=== PATIENT | male | born 1985 | race Caucasian/White ===

== ENCOUNTER 2016-11-07 15:13 | Emergency (ER) | payer OTHER ==
[2016-11-07] MEDS ORDERED: ASPIRIN 81 MG CHEW PO STA (15:18)
[2016-11-07] MEDS ORDERED: SODIUM CHLORIDE 0.9% 1,000 ML IV STA (15:18)
[2016-11-07 15:20] VITALS: RESP 18; TEMP 99
[2016-11-07] MEDS ORDERED: KETOROLAC 30 MG/ML 1 ML VIAL IVP STA (15:21)
--- NOTE | 2016-11-07 15:23 | ED ---
Chest Pain HPI - General Chief Complaint: Chest Pain Stated Complaint: chest pain Time Seen by Provider: 11/07/16 15:13 Source: patient, EMS, RN notes reviewed Mode of arrival: EMS Limitations: no limitations - History of Present Illness Initial Comments: This is a 31-year-old male who apparently had an argument with his father just prior to admission he started developing midsternal sharp chest pain he rated 10 /10 severity EMS was called he has had a blood pressure 160/100 repeat after he was settled on EMS 116/70. He does have a history of hypertension. No history of heart or lung disease. He does not smoke and does not drink. MD Complaint: chest pain - Related Data Home Medications Medication Instructions Recorded Confirmed Acetaminophen Tab [Tylenol Tab] 1,000 mg PO Q6HR PRN 11/21/15 11/21/15 EPINEPHrine (Auto Inject) [Epipen] 0.3 mg IM ONCE PRN 11/21/15 11/21/15 Losartan/Hydrochlorothiazide 1 tab PO DAILY 11/21/15 11/21/15 [Losartan-Hctz 100-25 mg Tab] Previous Rx's Medication Instructions Recorded Famotidine [Pepcid] 20 mg PO DAILY PRN #5 tablet 11/21/15 predniSONE 50 mg PO DAILY #5 tab 11/21/15 Ibuprofen 800 mg PO Q6HR PRN #20 tablet 11/07/16 Allergies Allergy/AdvReac Type Severity Reaction Status Date / Time venom-honey bee Allergy Dyspnea Verified 11/07/16 16:21 [bee venom (honey bee)] Review of Systems ROS Statement: Those systems with pertinent positive or pertinent negative responses have been documented in the HPI. ROS Other: All systems not noted in ROS Statement are negative. EKG Findings - EKG Results: EKG: interpreted by ERMKristel, sinus rhythm (Sinus rhythm with a rate of 88. Interval 176 QRS duration 104 QT since QTC of 360/[address]-T wave changes) Past Medical History Past Medical History: Hypertension History of Any Multi-Drug Resistant Organisms: None Reported Past Surgical History: Orthopedic Surgery Additional Past Surgical History / Comment(s): hand surgery Past Psychological History: Anxiety, Depression, PTSD Smoking Status: Never smoker Past Alcohol Use History: None Reported Past Drug Use History: None Reported General Exam - General Exam Comments Initial Comments: This is a well-developed well-nourished awake alert oriented 3 male Limitations: no limitations General appearance: alert, anxious Head exam: Present: atraumatic, normocephalic, normal inspection Eye exam: Present: normal appearance, PERRL, EOMI. Absent: scleral icterus, conjunctival injection, periorbital swelling ENT exam: Present: normal exam, mucous membranes moist Neck exam: Present: normal inspection. Absent: tenderness, meningismus, lymphadenopathy Respiratory exam: Present: normal lung sounds bilaterally, chest wall tenderness (Reproducible tenderness palpation of the left costal sternal margin. No step-off or crepitation.). Absent: respiratory distress, wheezes, rales, rhonchi, stridor Cardiovascular Exam: Present: regular rate, normal rhythm, normal heart sounds. Absent: systolic murmur, diastolic murmur, rubs, gallop, clicks GI/Abdominal exam: Present: soft, normal bowel sounds. Absent: distended, tenderness, guarding, rebound, rigid Extremities exam: Present: normal inspection, full ROM, normal capillary refill. Absent: tenderness, pedal edema, joint swelling, calf tenderness Back exam: Present: normal inspection Neurological exam: Present: alert, oriented X3, CN II-XII intact Psychiatric exam: Present: normal affect, normal mood Skin exam: Present: warm, dry, intact, normal color. Absent: rash Course Vital Signs 11/07/16 15:15 Temperature 99 F Pulse Rate 77 Respiratory 18 Rate Blood Pressure 159/84 O2 Sat by Pulse 94 L Oximetry Chest Pain MDM - MDM I did review the imaging and reports no acute findings. I did discuss the findings with patient family patient will be discharged presentation is consistent with costochondritis. Patient is mother does relate that the patient did lift up some heavy materials recently and likely did pull the chest wall that way. Disposition Clinical Impression: Costalchondritis, Chest wall syndrome Disposition: HOME SELF-CARE Condition: Good Instructions: Costochondritis (ED) Prescriptions: Ibuprofen 800 mg PO Q6HR PRN #20 tablet PRN Reason: Pain Referrals: Trevon Jones MD [Primary Care Provider] - 1-2 days
[2016-11-07 15:44] LABS: Basophils # (A) 0.1 k/uL (0-0.2); Basophils % (A) 1 %; CH 30.3; Eosinophils # (A) 0.3 k/uL (0-0.7); Eosinophils % (A) 4 %; HCT 39.4 % (39.0-53.0); HDW 2.89; HGB 14.2 gm/dL (13.0-17.5); Luc # (Auto) 0.09; Luc % (Auto) 1; Lymphocytes # (A) 1.8 k/uL (1.0-4.8); Lymphocytes % (A) 25 %; MCH 30.6 pg (25.0-35.0); MCV 84.8 fL (80.0-100.0); Mean Platelet Volume 7.1; Monocytes # (A) 0.4 k/uL (0-1.0); Monocytes % (A) 5 %; Neutrophils # (A) 4.6 k/uL (1.3-7.7); Neutrophils % (A) 64 %; RBC 4.65 m/uL (4.30-5.90); RDW 13.3 % (11.5-15.5); WBC 7.2 k/uL (3.8-10.6); WBC (Perox) 7.06
[2016-11-07 15:55] LABS: ALT 46 U/L (21-72); AST 24 U/L (17-59); Alkaline Phosphatase 58 U/L (38-126); Anion Gap 10 mmol/L; Blood Urea Nitrogen 11 mg/dL (9-20); Calcium 9.7 mg/dL (8.4-10.2); Carbon Dioxide 27 mmol/L (22-30); Chloride 107 mmol/L (98-107); Glucose 83 mg/dL (74-99); Magnesium 1.9 mg/dL (1.6-2.3); Non-African American GFR(MDRD) >60 (>60 ml/min/1.73 sqM); Potassium 3.5 mmol/L (3.5-5.1); Sodium 144 mmol/L (137-145); Total Bilirubin 0.3 mg/dL (0.2-1.3); Total Protein 7.1 g/dL (6.3-8.2)
[2016-11-07 15:57] LABS: Creatine Kinase 176 U/L (55-170); INR 1.1 (<1.2); Partial Thromboplastin Time 23.8 sec (22.0-30.0); Prothrombin Time 10.9 sec (9.0-12.0)
[2016-11-07 16:10] LABS: Troponin I <0.012 ng/mL (0.000-0.034)
[2016-11-07 16:13] LABS: Creatine Kinase MB 2.8 ng/mL (0.0-2.4)
--- NOTE | 2016-11-07 16:25 | XR ---
EXAMINATION TYPE: XR chest 2V DATE OF EXAM: 11/07/2016 COMPARISON: January 25, 2014. HISTORY: Chest pain TECHNIQUE: Frontal and lateral views of the chest are obtained. FINDINGS: There is no focal air space opacity, pleural effusion, or pneumothorax seen. The cardiac silhouette size is within normal limits. The osseous structures are intact. IMPRESSION: No acute cardiopulmonary process.
[2016-11-07 16:33] VITALS: BP 138/83; PULSE 74
== END 2016-11-07 16:49 | disposition home or self-care (01) ==
LOC: EEVIPCON 15:13 → EC 15:13
DX: M94.0 Chondrocostal junction syndrome [Tietze] (principal); I10 Essential (primary) hypertension; Z79.899 Other long term (current) drug therapy; Z91.030 Bee allergy status
CPT/HCPCS: 36415; 93005; 85379; 80053; 82550; 82553; 83735; 84484; 85025; 85610; 85730; 71020; 99285; 96374; J1885

== ENCOUNTER 2017-12-03 15:05 | Emergency (ER) | payer OTHER ==
[2017-12-03 15:20] VITALS: BP 164/85; PULSE 78; RESP 20; TEMP 98.3
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
== END 2017-12-03 16:39 | disposition home or self-care (01) ==
LOC: EC 15:05
DX: S13.4XXA Sprain of ligaments of cervical spine, initial encounter (principal); I10 Essential (primary) hypertension; Z91.030 Bee allergy status; Z79.899 Other long term (current) drug therapy; V49.59XA Passenger injured in collision with other motor vehicles in traffic accident, initial encounter; Y93.89 Activity, other specified; Y92.410 Unspecified street and highway as the place of occurrence of the external cause
CPT/HCPCS: 70450; 72125; 99284

== ENCOUNTER 2018-01-02 16:22 | Emergency (ER) | payer OTHER ==
[2018-01-02] MEDS ORDERED: SODIUM CHLORIDE 0.9% 1,000 ML IV STA (16:45)
[2018-01-02] MEDS ORDERED: DEXAMETHASONE SOD PHOSPHATE 10 MG/ML 1 ML VIAL IV STA (16:45)
[2018-01-02 17:31] VITALS: RESP 18
--- NOTE | 2018-01-02 18:36 | ED ---
Allergic Reaction HPI - General Chief complaint: Allergic Reaction Stated complaint: bee sting Time Seen by Provider: 01/02/18 16:35 Source: patient, EMS, RN notes reviewed, old records reviewed Mode of arrival: EMS Limitations: no limitations - History of Present Illness Initial Comments: This is a 32-year-old male the ER for evaluation of ALLERGIC reaction, bee sting. Patient is known ALLERGIC history, no history of reaction to bee sting. Patient did get EpiPen was brought to emergency room, patient is complaining of itching to both areas 1 left shoulder 1 right hand. No shortness of breath currently no feelings of not closing or difficulty breathing MD Complaint: allergic reaction -: minutes(s) (30) Exposure: insect bite Symptoms: rash, facial swelling Treatment Prior to Arrival: epinephrine Previous Allergy History: anaphylaxis - Related Data Home Medications Medication Instructions Recorded Confirmed EPINEPHrine (Auto Inject) [Epipen] 0.3 mg IM ONCE PRN 11/21/15 01/02/18 Losartan/Hydrochlorothiazide 1 tab PO DAILY 11/21/15 01/02/18 [Losartan-Hctz 100-25 mg Tab] Metoprolol Tartrate [Lopressor] 25 mg PO DAILY 01/02/18 01/02/18 Previous Rx's Medication Instructions Recorded EPINEPHrine (Auto Inject) [Epipen] 0.3 mg IM ONCE PRN #1 syringe 01/02/18 Famotidine [Pepcid] 20 mg PO BID #28 tablet 01/02/18 diphenhydrAMINE [Benadryl] 50 mg PO QID PRN #20 capsule 01/02/18 Allergies Allergy/AdvReac Type Severity Reaction Status Date / Time peanut Allergy Anaphylaxis Verified 01/02/18 16:39 tree nut Allergy Anaphylaxis Verified 01/02/18 16:39 venom-honey bee Allergy Anaphylaxis Verified 01/02/18 16:39 [bee venom (honey bee)] Review of Systems ROS Statement: Those systems with pertinent positive or pertinent negative responses have been documented in the HPI. ROS Other: All systems not noted in ROS Statement are negative. Past Medical History Past Medical History: Hypertension History of Any Multi-Drug Resistant Organisms: None Reported Past Surgical History: Orthopedic Surgery Additional Past Surgical History / Comment(s): hand surgery Past Psychological History: No Psychological Hx Reported, Anxiety, Depression, PTSD Smoking Status: Never smoker Past Alcohol Use History: None Reported Past Drug Use History: None Reported General Exam - General Exam Comments Initial Comments: Patient does have bee sting to right hand, left shoulder no stinger, no local erythema Limitations: no limitations General appearance: alert, in no apparent distress Head exam: Present: atraumatic, normocephalic, normal inspection Eye exam: Present: normal appearance, PERRL, EOMI. Absent: scleral icterus, conjunctival injection, periorbital swelling ENT exam: Present: normal exam, mucous membranes moist Neck exam: Present: normal inspection. Absent: tenderness, meningismus, lymphadenopathy Respiratory exam: Present: normal lung sounds bilaterally. Absent: respiratory distress, wheezes, rales, rhonchi, stridor Cardiovascular Exam: Present: regular rate, normal rhythm, normal heart sounds. Absent: systolic murmur, diastolic murmur, rubs, gallop, clicks GI/Abdominal exam: Present: soft, normal bowel sounds. Absent: distended, tenderness, guarding, rebound, rigid Extremities exam: Present: normal inspection, full ROM, normal capillary refill. Absent: tenderness, pedal edema, joint swelling, calf tenderness Back exam: Present: normal inspection Neurological exam: Present: alert, oriented X3, CN II-XII intact Psychiatric exam: Present: normal affect, normal mood Skin exam: Present: warm, dry, intact, normal color. Absent: rash Course Vital Signs 01/02/18 01/02/18 01/02/18 16:31 16:38 17:30 Temperature 100.5 F H Pulse Rate 122 H 122 H 108 H Respiratory 22 20 18 Rate Blood Pressure 164/101 138/90 133/82 O2 Sat by Pulse 94 L 94 L 96 Oximetry 01/02/18 18:40 Temperature 99.0 F Pulse Rate 97 Respiratory 18 Rate Blood Pressure 130/73 O2 Sat by Pulse 96 Oximetry - Reevaluation(s) Reevaluation #1: Patient symptoms have significant relief resolved. Medical Decision Making - Medical Decision Making 32 male the ER with ALLERGIC reaction to bee sting. Patient can be discharged home as he is asymptomatic currently Disposition Clinical Impression: Allergic reaction, Allergic reaction to insect sting Disposition: HOME SELF-CARE Condition: Good Instructions: Insect Bite or Sting (ED) Prescriptions: diphenhydrAMINE [Benadryl] 50 mg PO QID PRN #20 capsule PRN Reason: itch EPINEPHrine (Auto Inject) [Epipen] 0.3 mg IM ONCE PRN #1 syringe PRN Reason: Anaphylaxis Famotidine [Pepcid] 20 mg PO BID #28 tablet Is patient prescribed a controlled substance at d/c from ED?: No Referrals: Trevon Jones MD [Primary Care Provider] - 1-2 days
[2018-01-02 18:47] VITALS: BP 130/73; PULSE 97; TEMP 99
== END 2018-01-02 18:45 | disposition home or self-care (01) ==
LOC: EC 16:22
DX: T63.441A Toxic effect of venom of bees, accidental (unintentional), initial encounter (principal); I10 Essential (primary) hypertension; Z79.899 Other long term (current) drug therapy; Z91.030 Bee allergy status; Z91.010 Allergy to peanuts; Z91.018 Allergy to other foods
CPT/HCPCS: 99284; 96374; 96361; J1100

== ENCOUNTER 2018-09-12 18:51 | Emergency (ER) | payer OTHER ==
[2018-09-12 19:02] VITALS: TEMP 99.1
[2018-09-12] MEDS ORDERED: SODIUM CHLORIDE 0.9% 1,000 ML IV STA (19:16)
[2018-09-12] MEDS ORDERED: KETOROLAC 30 MG/ML 1 ML VIAL IVP STA (19:16)
[2018-09-12] MEDS ORDERED: ASPIRIN 81 MG PO STA (19:16)
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
[2018-09-12 19:58] LABS: Basophils # (A) 0.1 k/uL (0-0.2); Basophils % (A) 1 %; Eosinophils # (A) 0.3 k/uL (0-0.7); Eosinophils % (A) 3 %; HCT 38.2 % (39.0-53.0); HGB 13.3 gm/dL (13.0-17.5); Lymphocytes # (A) 2.1 k/uL (1.0-4.8); Lymphocytes % (A) 21 %; MCH 29.2 pg (25.0-35.0); MCHC 34.9 g/dL (31.0-37.0); MCV 83.8 fL (80.0-100.0); Mean Platelet Volume 7.2; Monocytes # (A) 0.5 k/uL (0-1.0); Monocytes % (A) 5 %; Neutrophils % (A) 70 %; Platelet Count 252 k/uL (150-450); RBC 4.56 m/uL (4.30-5.90); RDW 14.4 % (11.5-15.5)
[2018-09-12 20:07] LABS: ALT 34 U/L (21-72); AST 29 U/L (17-59); African American GFR (CKD) >90 (>60 ml/min/1.73 sqM); Albumin 4.3 g/dL (3.5-5.0); Alkaline Phosphatase 70 U/L (38-126); Anion Gap 10 mmol/L; Blood Urea Nitrogen 16 mg/dL (9-20); Calcium 9.5 mg/dL (8.4-10.2); Carbon Dioxide 25 mmol/L (22-30); Chloride 109 mmol/L (98-107); Glucose 95 mg/dL (74-99); Magnesium 2.1 mg/dL (1.6-2.3); Potassium 3.3 mmol/L (3.5-5.1); Sodium 144 mmol/L (137-145); Total Bilirubin 0.3 mg/dL (0.2-1.3); Total Protein 6.9 g/dL (6.3-8.2)
[2018-09-12 20:16] LABS: D-Dimer 0.4 mg/L FEU (<0.60); Partial Thromboplastin Time 23.2 sec (22.0-30.0); Prothrombin Time 10.3 sec (9.0-12.0)
--- NOTE | 2018-09-12 20:22 | XR ---
EXAMINATION TYPE: XR chest 2V DATE OF EXAM: 09/12/2018 COMPARISON: 11/07/2016 HISTORY: Chest pain TECHNIQUE: Frontal and lateral views of the chest are obtained. FINDINGS: Heart and mediastinum are normal. Lungs are clear of infiltrate. There are chest leads. Co stophrenic angles are clear. IMPRESSION: No active cardiopulmonary disease. No change.
[2018-09-12] MEDS ORDERED: POTASSIUM CHLORIDE ER 20 MEQ TAB.ER PO STA (20:57)
[2018-09-12 21:10] VITALS: BP 122/83; PULSE 90; RESP 16
== END 2018-09-12 21:14 | disposition home or self-care (01) ==
LOC: EC 18:51
DX: R07.89 Other chest pain (principal); E87.6 Hypokalemia; R06.02 Shortness of breath; I10 Essential (primary) hypertension; Z91.010 Allergy to peanuts; Z91.018 Allergy to other foods; Z91.030 Bee allergy status; Z79.899 Other long term (current) drug therapy
CPT/HCPCS: 36415; 93005; 85379; 80053; 83735; 84484; 85025; 85610; 85730; 71046; 99285; 96374; 96361; J1885

== ENCOUNTER 2018-11-04 12:02 | Emergency (ER) | payer OTHER ==
[2018-11-04 12:09] VITALS: RESP 16; TEMP 97.9
[2018-11-04] MEDS ORDERED: ONDANSETRON ODT 4 MG TAB PO STA (12:53)
[2018-11-04] MEDS ORDERED: FAMOTIDINE 20 MG TAB PO STA (12:53)
[2018-11-04] MEDS ORDERED: ONDANSETRON 4 MG/2 ML VIAL IVP STA (13:03)
[2018-11-04] MEDS ORDERED: FAMOTIDINE 20 MG/2 ML VIAL IV STA (13:04)
[2018-11-04] MEDS ORDERED: SODIUM CHLORIDE 0.9% 500 ML 500 ML IV STA (13:04)
--- NOTE | 2018-11-04 13:13 | ED ---
Allergic Reaction HPI - General Chief complaint: Allergic Reaction Stated complaint: Allergic Reaction Time Seen by Provider: 11/04/18 12:03 Source: patient, EMS, RN notes reviewed Mode of arrival: EMS Limitations: no limitations - History of Present Illness Initial Comments: 33-year-old male presents emergency from chief complaint of ALLERGIC reaction. Patient states he was stung by a bee under his left eye. Patient has known ALLERGY to bees. Patient did give him self his EpiPen is given IM Benadryl by EMS or prednisone. Patient states that he is feeling better at this time. Patient denies any throat swelling or shortness breath currently but he does have some a symptoms. Patient denies any other rashes. - Related Data Home Medications Medication Instructions Recorded Confirmed Metoprolol Tartrate [Lopressor] 25 mg PO DAILY 01/02/18 11/04/18 Hydrochlorothiazide 25 mg PO DAILY 09/12/18 11/04/18 Losartan Potassium [Cozaar] 100 mg PO DAILY 09/12/18 11/04/18 Previous Rx's Medication Instructions Recorded predniSONE 50 mg PO DAILY #3 tab 11/04/18 Allergies Allergy/AdvReac Type Severity Reaction Status Date / Time peanut Allergy Anaphylaxis Verified 11/04/18 12:21 tree nut Allergy Anaphylaxis Verified 11/04/18 12:21 venom-honey bee Allergy Anaphylaxis Verified 11/04/18 12:21 [bee venom (honey bee)] Review of Systems ROS Statement: Those systems with pertinent positive or pertinent negative responses have been documented in the HPI. ROS Other: All systems not noted in ROS Statement are negative. Past Medical History Past Medical History: Hypertension History of Any Multi-Drug Resistant Organisms: None Reported Past Surgical History: Orthopedic Surgery Additional Past Surgical History / Comment(s): hand surgery Past Psychological History: Anxiety, Depression, PTSD Smoking Status: Never smoker Past Alcohol Use History: None Reported Past Drug Use History: None Reported General Exam Limitations: no limitations General appearance: alert, in no apparent distress Head exam: Present: atraumatic, normocephalic, normal inspection Eye exam: Present: normal appearance, PERRL, EOMI. Absent: scleral icterus, conjunctival injection, periorbital swelling ENT exam: Present: normal exam, normal oropharynx, mucous membranes moist Neck exam: Present: normal inspection, full ROM. Absent: tenderness, meningismus, lymphadenopathy Respiratory exam: Present: normal lung sounds bilaterally. Absent: respiratory distress, wheezes, rales, rhonchi, stridor Cardiovascular Exam: Present: regular rate, normal rhythm, normal heart sounds. Absent: systolic murmur, diastolic murmur, rubs, gallop, clicks Neurological exam: Present: alert, oriented X3, CN II-XII intact Skin exam: Present: warm, dry, intact, normal color. Absent: rash Course Vital Signs 11/04/18 11/04/18 11/04/18 12:03 12:35 13:00 Temperature 97.9 F Pulse Rate 98 68 Respiratory 16 16 Rate Blood Pressure 183/103 138/81 115/73 O2 Sat by Pulse 96 96 Oximetry 11/04/18 13:46 Temperature Pulse Rate Respiratory Rate Blood Pressure 124/86 O2 Sat by Pulse Oximetry - Reevaluation(s) Reevaluation #1: 11/04/18 14:04 Patient reevaluated symptom-free at this time Medical Decision Making - Medical Decision Making 33-year-old male presented to emergency from for bee sting, ALLERGIC reaction. Patient was given epi by myself, patient was given Benadryl prednisone Pepcid. Patient feels improved at this time. Patient we discharged advised continue Benadryl for minimal 24 hours with be given steroids and exudates will follow-up PCP and return for any worsening symptoms. Disposition Clinical Impression: Allergic reaction to insect sting Disposition: HOME SELF-CARE Condition: Stable Instructions (If sedation given, give patient instructions): General Allergic Reaction (ED) Additional Instructions: Please return to the Emergency Department if symptoms worsen or any other concerns. Continue Benadryl as directed. Prescriptions: predniSONE 50 mg PO DAILY #3 tab Is patient prescribed a controlled substance at d/c from ED?: No Referrals: Trevon Jones MD [Primary Care Provider] - 1-2 days Time of Disposition: 14:08
[2018-11-04 13:14] VITALS: PULSE 68
[2018-11-04 13:47] VITALS: BP 124/86
== END 2018-11-04 14:23 | disposition home or self-care (01) ==
LOC: EC 12:02
DX: T63.441A Toxic effect of venom of bees, accidental (unintentional), initial encounter (principal); I10 Essential (primary) hypertension; Z79.899 Other long term (current) drug therapy; Z91.010 Allergy to peanuts; Z91.018 Allergy to other foods; Z91.030 Bee allergy status
CPT/HCPCS: 99283; 96374; 96375; J2405

== ENCOUNTER 2018-11-12 13:02 | Emergency (ER) | payer OTHER ==
[2018-11-12] MEDS ORDERED: ASPIRIN 81 MG PO STA (13:14)
[2018-11-12] MEDS ORDERED: SODIUM CHLORIDE 0.9% 1,000 ML IV STA (13:14)
[2018-11-12 13:27] LABS: Anisocytosis Slight; Basophils # (A) 0.1 k/uL (0-0.2); Basophils % (A) 1 %; Eosinophils # (A) 0.2 k/uL (0-0.7); Eosinophils % (A) 2 %; HGB 14.2 gm/dL (13.0-17.5); Lymphocytes # (A) 1.8 k/uL (1.0-4.8); Lymphocytes % (A) 23 %; MCH 29.5 pg (25.0-35.0); MCHC 33.9 g/dL (31.0-37.0); MCV 87.1 fL (80.0-100.0); Mean Platelet Volume 7.2; Monocytes # (A) 0.5 k/uL (0-1.0); Monocytes % (A) 7 %; Neutrophils # (A) 4.9 k/uL (1.3-7.7); Neutrophils % (A) 66 %; Platelet Count 249 k/uL (150-450); RBC 4.83 m/uL (4.30-5.90); RDW 16.3 % (11.5-15.5); WBC 7.5 k/uL (3.8-10.6)
[2018-11-12 13:37] LABS: ALT 35 U/L (21-72); AST 28 U/L (17-59); African American GFR (CKD) >90 (>60 ml/min/1.73 sqM); Albumin 4.6 g/dL (3.5-5.0); Alkaline Phosphatase 71 U/L (38-126); Anion Gap 10 mmol/L; Blood Urea Nitrogen 17 mg/dL (9-20); Calcium 9.8 mg/dL (8.4-10.2); Carbon Dioxide 27 mmol/L (22-30); Chloride 108 mmol/L (98-107); Glucose 100 mg/dL (74-99); Magnesium 2.2 mg/dL (1.6-2.3); Non-African American GFR(CKD) >90 (>60 ml/min/1.73 sqM); Potassium 3.4 mmol/L (3.5-5.1); Sodium 145 mmol/L (137-145); Total Bilirubin 0.4 mg/dL (0.2-1.3); Total Protein 7.4 g/dL (6.3-8.2)
--- NOTE | 2018-11-12 13:40 | ED ---
General Adult HPI - General Chief complaint: Chest Pain Stated complaint: CHEST PAIN Time Seen by Provider: 11/12/18 13:05 Source: patient, RN notes reviewed, old records reviewed Mode of arrival: EMS Limitations: no limitations - History of Present Illness Initial comments: 33-year-old male patient presents to ED with chief complaint of chest pain. Patient reports that approximately one hour prior to presentation to ED patient developed substernal sharp chest pain. Patient reports this was repeated for by palpation. Patient denies any use of breath. At time of presentation to ED chest pain has resolved. Patient denies any associated symptoms including nausea vomiting diarrhea, diaphoresis. Patient is a nonsmoker, nondiabetic, is obese. Systemic: Pt denies fatigue, fever/chills, rash. Pt denies weakness, night sweats, weight loss. Neuro: Pt denies headache, visual disturbances, syncope or pre-syncope. HEENT: Pt denies ocular discharge or irritation, otalgia, rhinorrhea, pharyngitis or notable lymphadenopathy. Cardiopulmonary: Pt denies chest pain, SOB, heart palpitations, dyspnea on exertion. Abdominal/GI: Pt denies abdominal pain, n/v/d. : Pt denies dysuria, burning w/ urination, frequency/urgency. Denies new onset urinary or bowel incontinence. MSK: Pt denies myalgia, loss of strength or function in extremities. Neuro: Pt denies new onset weakness, paresthesias. - Related Data Home Medications Medication Instructions Recorded Confirmed Metoprolol Tartrate [Lopressor] 25 mg PO DAILY 01/02/18 11/04/18 Hydrochlorothiazide 25 mg PO DAILY 09/12/18 11/04/18 Losartan Potassium [Cozaar] 100 mg PO DAILY 09/12/18 11/04/18 Previous Rx's Medication Instructions Recorded predniSONE 50 mg PO DAILY #3 tab 11/04/18 Allergies Allergy/AdvReac Type Severity Reaction Status Date / Time peanut Allergy Anaphylaxis Verified 11/04/18 12:21 tree nut Allergy Anaphylaxis Verified 11/04/18 12:21 venom-honey bee Allergy Anaphylaxis Verified 11/04/18 12:21 [bee venom (honey bee)] Review of Systems ROS Statement: Those systems with pertinent positive or pertinent negative responses have been documented in the HPI. ROS Other: All systems not noted in ROS Statement are negative. Past Medical History Past Medical History: Hypertension History of Any Multi-Drug Resistant Organisms: None Reported Past Surgical History: Orthopedic Surgery Additional Past Surgical History / Comment(s): hand surgery Past Psychological History: Anxiety, Depression, PTSD Smoking Status: Never smoker Past Alcohol Use History: None Reported Past Drug Use History: None Reported General Exam - General Exam Comments Initial Comments: Constitutional: NAD, AOX3, Pt has pleasant affect. HEENT: NC/AT, trachea midline, neck supple, no lymphadenopathy. Posterior pharynx non erythematous, without exudates. External ears appear normal, without discharge. Mucous membranes moist. Eyes PERRLA, EOM intact. There is no scleral icterus. No pallor noted. Cardiopulmonary: RRR, no murmurs, rubs or gallops, no JVD noted. Lungs CTAB in anterior and posterior cooper. No peripheral edema. Abdominal exam: Abdomen soft and non-distended. Abdomen non-tender to palpation in all 4 quadrants. Bowel sounds active in LLQ. No hepatosplenomegaly. No ecchymosis Neuro: CN II-XII grossly intact. No nuchal rigidity. No raccon eyes, no sharif sign, no hemotympanum. No cervical spinal tenderness. MSK: No posterior calf tenderness bilaterally, homans sign negative bilaterally. Posterior tibialis and radial pulse +2 bilaterally. Sensation intact in upper and lower extremities. Full active ROM in upper and lower extremities, 5/5 stregnth. Limitations: no limitations Course Vital Signs 11/12/18 11/12/18 11/12/18 13:04 13:09 15:00 Temperature 98.0 F 98.2 F Pulse Rate 87 83 Pulse Rate [ 70 Pet Walker ] Respiratory 17 17 Rate Blood Pressure 137/96 134/92 O2 Sat by Pulse 96 96 Oximetry 11/12/18 17:20 Temperature Pulse Rate 80 Pulse Rate [ Pet Walker ] Respiratory 16 Rate Blood Pressure 134/84 O2 Sat by Pulse 99 Oximetry Medical Decision Making - Medical Decision Making 33-year-old male patient presents to ED with chief complaint of chest pain. James villatoro reports that approximately one hour prior to presentation to ED patient developed substernal sharp chest pain. Patient reports this was repeated for by palpation. Patient denies any use of breath. At time of presentation to ED chest pain has resolved. Patient denies any associated symptoms including nausea vomiting diarrhea, diaphoresis. Patient is a nonsmoker, nondiabetic, is obese. Patient also signs stable, afebrile. Physical exam displayed no acute pathology. Laboratory investigation was non-impressive. Troponin negative 2. D-dimer negative. Chest x-ray revealed no acute process. EKG not concerning for acute ischemia. Pt discharged with cardiology f/u. Case discused with Dr. Reaves. - Lab Data Result diagrams: 11/12/18 13:18 11/12/18 13:10 Lab Results 11/12/18 11/12/18 11/12/18 Range/Units 13:10 13:10 13:10 WBC (3.8-10.6) k/uL RBC (4.30-5.90) m/uL Hgb (13.0-17.5) gm/dL Hct (39.0-53.0) % MCV (80.0-100.0) fL MCH (25.0-35.0) pg MCHC (31.0-37.0) g/dL RDW (11.5-15.5) % Plt Count (150-450) k/uL Neutrophils % % Lymphocytes % % Monocytes % % Eosinophils % % Basophils % % Neutrophils # (1.3-7.7) k/uL Lymphocytes # (1.0-4.8) k/uL Monocytes # (0-1.0) k/uL Eosinophils # (0-0.7) k/uL Basophils # (0-0.2) k/uL Anisocytosis PT 10.5 (9.0-12.0) sec INR 1.0 (<1.2) APTT 23.2 (22.0-30.0) sec D-Dimer 0.31 (<0.60) mg/L FEU Sodium 145 (137-145) mmol/L Potassium 3.4 L (3.5-5.1) mmol/L Chloride 108 H (98-107) mmol/L Carbon Dioxide 27 (22-30) mmol/L Anion Gap 10 mmol/L BUN 17 (9-20) mg/dL Creatinine 0.98 (0.66-1.25) mg/dL Est GFR (CKD-EPI)AfAm >90 (>60 ml/min/1.73 sqM) Est GFR (CKD-EPI)NonAf >90 (>60 ml/min/1.73 sqM) Glucose 100 H (74-99) mg/dL Calcium 9.8 (8.4-10.2) mg/dL Magnesium 2.2 (1.6-2.3) mg/dL Total Bilirubin 0.4 (0.2-1.3) mg/dL AST 28 (17-59) U/L ALT 35 (21-72) U/L Alkaline Phosphatase 71 (38-126) U/L Troponin I (0.000-0.034) ng/mL NT-Pro-B Natriuret Pep <11 pg/mL Total Protein 7.4 (6.3-8.2) g/dL Albumin 4.6 (3.5-5.0) g/dL 11/12/18 11/12/18 11/12/18 Range/Units 13:10 13:18 16:39 WBC 7.5 (3.8-10.6) k/uL RBC 4.83 (4.30-5.90) m/uL Hgb 14.2 (13.0-17.5) gm/dL Hct 42.0 (39.0-53.0) % MCV 87.1 (80.0-100.0) fL MCH 29.5 (25.0-35.0) pg MCHC 33.9 (31.0-37.0) g/dL RDW 16.3 H (11.5-15.5) % Plt Count 249 (150-450) k/uL Neutrophils % 66 % Lymphocytes % 23 % Monocytes % 7 % Eosinophils % 2 % Basophils % 1 % Neutrophils # 4.9 (1.3-7.7) k/uL Lymphocytes # 1.8 (1.0-4.8) k/uL Monocytes # 0.5 (0-1.0) k/uL Eosinophils # 0.2 (0-0.7) k/uL Basophils # 0.1 (0-0.2) k/uL Anisocytosis Slight PT (9.0-12.0) sec INR (<1.2) APTT (22.0-30.0) sec D-Dimer (<0.60) mg/L FEU Sodium (137-145) mmol/L Potassium (3.5-5.1) mmol/L Chloride (98-107) mmol/L Carbon Dioxide (22-30) mmol/L Anion Gap mmol/L BUN (9-20) mg/dL Creatinine (0.66-1.25) mg/dL Est GFR (CKD-EPI)AfAm (>60 ml/min/1.73 sqM) Est GFR (CKD-EPI)NonAf (>60 ml/min/1.73 sqM) Glucose (74-99) mg/dL Calcium (8.4-10.2) mg/dL Magnesium (1.6-2.3) mg/dL Total Bilirubin (0.2-1.3) mg/dL AST (17-59) U/L ALT (21-72) U/L Alkaline Phosphatase (38-126) U/L Troponin I <0.012 <0.012 (0.000-0.034) ng/mL NT-Pro-B Natriuret Pep pg/mL Total Protein (6.3-8.2) g/dL Albumin (3.5-5.0) g/dL - EKG Data -: EKG Interpreted by Me EKG Comments: Ventricular rate 87, DEMETRIS 160, QRS 102, daily since QTC 376/70. NSR, no concern for acute ischemia. Disposition Clinical Impression: Atypical chest pain Disposition: HOME SELF-CARE Condition: Stable Instructions (If sedation given, give patient instructions): Chest Pain (ED) Additional Instructions: Patient to adhere to previously discussed treatment plan and will take medication(s) as directed. Patient to follow up with PCP in 1-2 days. Patient to return to ED if symptoms do not improve. Follow-up with primary care provider, follow-up with smooth plater. Return to ER if condition worsens. Is patient prescribed a controlled substance at d/c from ED?: No Referrals: Trevon Jones MD [Primary Care Provider] - 1-2 days Kayden Abebe MD [STAFF PHYSICIAN] - 1-2 days
--- NOTE | 2018-11-12 13:42 | XR ---
EXAMINATION TYPE: XR chest 2V DATE OF EXAM: 11/12/2018 HISTORY: Chest Pain. REFERENCE: Previous study dated 09/12/2018. FINDINGS: Heart size is upper limits of normal. The lungs appear clear. Pleural space are clear. IMPRESSION: NO ACTIVE INTRATHORACIC DISEASE.
[2018-11-12 13:43] LABS: D-Dimer 0.31 mg/L FEU (<0.60); Partial Thromboplastin Time 23.2 sec (22.0-30.0); Prothrombin Time 10.5 sec (9.0-12.0)
[2018-11-12 15:03] VITALS: TEMP 98.2
[2018-11-12 17:21] VITALS: BP 134/84; PULSE 80; RESP 16
== END 2018-11-12 17:25 | disposition home or self-care (01) ==
LOC: EC 13:02
DX: R07.89 Other chest pain (principal); I10 Essential (primary) hypertension; Z91.010 Allergy to peanuts; Z91.018 Allergy to other foods; Z91.030 Bee allergy status; Z79.899 Other long term (current) drug therapy
CPT/HCPCS: 36415; 71046; 80053; 83735; 83880; 84484; 85025; 85379; 85610; 85730; 93005; 96360; 99285

== ENCOUNTER → 2018-11-28 | Outpatient (CLI) | payer OTHER ==
--- NOTE | 2018-11-28 22:13 | CONS ---
CONSULTATION REASON FOR CONSULTATION: Sleep apnea. This is a 33-year-old male patient coming in with typical features of obstructive sleep apnea. The patient is a mentally challenged young male patient who is having excessive hypersomnia and sleepiness. The patient also has had refractory hypertension. He came into the sleep center approximately 5 years ago, and back then a polysomnogram was ordered; however, the patient was unable to achieve a full night's sleep, and based on that it was a failed study. He did not show up back to the sleep center since. Currently he is snoring, he quits breathing, his sleep is fragmented and he is highly somnolent and sleepy during the day with an Cypress score of 22. His blood pressure remains elevated. He is coming in for further advice. He goes to bed around 10:30 p.m., wakes up at 8 a.m. in the morning. He averages around 7 to 8 hours of sleep, and despite that he feels very tired and fatigued and sleepy. No sleep paralysis. No hallucinations. No cataplexy. PAST MEDICAL HISTORY: 1. Hypertension. 2. Obesity. SURGICAL HISTORY: Negative. DRUG ALLERGIES: NOT KNOWN. ALLERGIES: BEES and SPICY FOOD. MEDICATIONS: Medications include: 1. Lisinopril. 2. Losartan. 3. Hydrochlorothiazide. SOCIAL HISTORY: The patient is a nonsmoker. No history of alcoholism. No history of IV drugs. FAMILY HISTORY: Unable to obtain a full family history, as the patient is not aware of any family health issues. Note that he is a poor historian in general. According to him, there is no family history of obstructive sleep apnea. REVIEW OF SYSTEMS: Fourteen-point review of systems was done. Positive findings were all mentioned above in the history of present illness. He has excessive fatigue and sleepiness during the day. He wakes up with sleep fragmentation and occasionally gasping for air. Quite restless at nighttime and occasionally talks in his sleep. He has problem with concentration and memory. He has problems with weight gain. He wakes up at least 3-4 times in the middle of the night, sometimes to urinate. He does not get out of bed unless he has to go to the bathroom. No seizure activity. No headaches. No altered mentation. As mentioned, he does have some developmental delay. He is mentally challenged. PHYSICAL EXAMINATION: VITAL SIGNS: BP is 186/90, pulse 104, respirations 16, temperature 97.7, saturation 96% on room air. Height is 5 feet 10 inches, weight 313, BMI 44.2. Neck size is 18-1/2 inches. GENERAL APPEARANCE: Calm, comfortable. No acute distress. HEAD: Atraumatic, normocephalic. NECK: Supple. No JVD. No goiter or neck masses. LUNGS: Clear to auscultation. HEART: Heart sounds are regular rate and rhythm. Normal S1, S2. No S3, S4. No murmurs. ABDOMEN: Soft, nontender. No organomegaly. EXTREMITIES: No edema. No cyanosis or clubbing. IMPRESSION: 1. Obstructive sleep apnea. Clinically high suspicion for ARTEM based on symptoms and anatomic features. The patient has a BMI of 44.2, has a Mallampati class IV. He has loud snoring, sleep fragmentation and excessive hypersomnia and sleepiness with an Cypress score of 21. As such, my suspicion for ARTEM is high. 2. Hypertension. PLAN: The patient has developmental delay and intellectual deficits. He would not be able to proceed with a home sleep study. Based on that, I asked him to come to the lab again to complete a full-night polysomnogram here in the lab to study him for any sleep apnea and treat him accordingly. He may benefit from treatment if the ARTEM diagnosis is confirmed. Will continue to follow. n KALI / SOMMER: [id number] /
== END | disposition home or self-care (01) ==
LOC: SLEEP 13:22
PROVIDERS: ATTEND Internal Medicine Critical Care Medicine
DX: G47.10 Hypersomnia, unspecified (principal); R06.83 Snoring; I10 Essential (primary) hypertension; E66.9 Obesity, unspecified; Z68.41 Body mass index [BMI] 40.0-44.9, adult; Z79.899 Other long term (current) drug therapy
CPT/HCPCS: 99211

== ENCOUNTER 2021-09-03 13:05 | Emergency (ER) | payer OTHER ==
[2021-09-03] MEDS ORDERED: ASPIRIN 81 MG PO STA (13:12)
[2021-09-03] MEDS ORDERED: NITROGLYCERIN OINT 1 INCH/GM PACKET TOPICAL STA (13:12)
[2021-09-03 13:18] VITALS: RESP 18
--- NOTE | 2021-09-03 13:18 | ED ---
General Adult HPI - General Chief complaint: Chest Pain Stated complaint: Chest Pain Time Seen by Provider: 09/03/21 13:05 Source: patient, EMS, RN notes reviewed, old records reviewed Mode of arrival: EMS - History of Present Illness Initial comments: This is a 36-year-old male who has a guardian. Patient is somewhat developmentally delayed. Patient complained of having some chest pain at the doctor's office and they decided to send him to the emergency department. Patient states the pain is reproducible. Patient denies any fever chills or cough. Patient denies any shortness of breath per patient denies any diaphoretic episodes. Patient denies any nausea. Patient denies abdominal pain patient denies nausea vomiting diarrhea. Patient states the pain was there that long and it is completely gone at this time as you touch the chest. EMS stated when they touch the chest was reproducible for them as well. Mother arrived and stated that he's been having this chest pain on and off for the last month. It particularly gets worse when he is lifting heavy objects which she is doing on a regular basis according to mom - Related Data Home Medications Medication Instructions Recorded Confirmed Metoprolol Tartrate [Lopressor] 25 mg PO DAILY 01/02/18 09/03/21 Losartan Potassium [Cozaar] 100 mg PO DAILY 09/12/18 09/03/21 hydroCHLOROthiazide 50 mg PO DAILY 09/12/18 09/03/21 Cholecalciferol [Vitamin D3 (125 125 mcg PO DAILY 09/03/21 09/03/21 Mcg = 5000 Iu)] EPINEPHrine (Auto Inject) [Epipen] 0.3 mg IM ONCE PRN 09/03/21 09/03/21 Allergies Allergy/AdvReac Type Severity Reaction Status Date / Time peanut Allergy Anaphylaxis Verified 11/04/18 12:21 tree nut Allergy Anaphylaxis Verified 11/04/18 12:21 venom-honey bee Allergy Anaphylaxis Verified 11/04/18 12:21 [bee venom (honey bee)] amlodipine [From Norvasc] AdvReac Swelling - Verified 09/03/21 13:58 feet Review of Systems ROS Statement: Those systems with pertinent positive or pertinent negative responses have been documented in the HPI. ROS Other: All systems not noted in ROS Statement are negative. Past Medical History Past Medical History: Hypertension History of Any Multi-Drug Resistant Organisms: None Reported Past Surgical History: Orthopedic Surgery Additional Past Surgical History / Comment(s): hand surgery Past Psychological History: Anxiety, Depression, PTSD Smoking Status: Never smoker Past Alcohol Use History: None Reported Past Drug Use History: None Reported General Exam - General Exam Comments Initial Comments: GENERAL: Patient is well-developed and well-nourished. Patient is nontoxic and well- hydrated and is in no acute distress. ENT: Neck is soft and supple. No significant lymphadenopathy is noted. Oropharynx is clear. Moist mucous membranes. Neck has full range of motion without eliciting any pain. EYES: The sclera were anicteric and conjunctiva were pink and moist. Extraocular movements were intact and pupils were equal round and reactive to light. Eyelids were unremarkable. PULMONARY: Unlabored respirations. Good breath sounds bilaterally. No audible rales rhonchi or wheezing was noted. CARDIOVASCULAR: There is a regular rate and rhythm without any murmurs gallops or rubs. ABDOMEN: Soft and nontender with normal bowel sounds. SKIN: Skin is clear with no lesions or rashes and otherwise unremarkable. NEUROLOGIC: Patient is alert and oriented to his baseline. Cranial nerves II through XII are grossly intact. Motor and sensory are also intact. Normal speech, volume and content. Symmetrical smile. MUSCULOSKELETAL: Normal extremities with adequate strength and full range of motion. No lower extremity swelling or edema. No calf tenderness. LYMPHATICS: No significant lymphadenopathy is noted PSYCHIATRIC: Normal psychiatric evaluation. Course Vital Signs 09/03/21 13:09 Temperature 97.8 F Pulse Rate 91 Respiratory 18 Rate Blood Pressure 151/101 O2 Sat by Pulse 97 Oximetry Medical Decision Making - Medical Decision Making EKG shows sinus rhythm at 89 bpm IL interval 186 QRS is 117 QT interval 370 QTC is 416. Patient's EKG shows no ST segment elevation or depression. Chest x-ray showed no acute abnormality. I went back into the room patient was not exhibiting any chest pain and last week pressed on his chest. - Lab Data Result diagrams: 09/03/21 13:17 09/03/21 13:17 Lab Results 09/03/21 09/03/21 09/03/21 Range/Units 13:17 13:17 13:17 WBC 9.2 (3.8-10.6) k/uL RBC 4.89 (4.30-5.90) m/uL Hgb 14.3 (13.0-17.5) gm/dL Hct 42.6 (39.0-53.0) % MCV 87.1 (80.0-100.0) fL MCH 29.2 (25.0-35.0) pg MCHC 33.5 (31.0-37.0) g/dL RDW 14.5 (11.5-15.5) % Plt Count 290 (150-450) k/uL MPV 7.2 Neutrophils % 63 % Lymphocytes % 24 % Monocytes % 7 % Eosinophils % 3 % Basophils % 1 % Neutrophils # 5.8 (1.3-7.7) k/uL Lymphocytes # 2.2 (1.0-4.8) k/uL Monocytes # 0.6 (0-1.0) k/uL Eosinophils # 0.3 (0-0.7) k/uL Basophils # 0.1 (0-0.2) k/uL PT 10.3 (9.0-12.0) sec INR 0.9 (<1.2) APTT 24.0 (22.0-30.0) sec Sodium 143 (137-145) mmol/L Potassium 3.2 L (3.5-5.1) mmol/L Chloride 104 (98-107) mmol/L Carbon Dioxide 30 (22-30) mmol/L Anion Gap 9 mmol/L BUN 14 (9-20) mg/dL Creatinine 0.78 (0.66-1.25) mg/dL Est GFR (CKD-EPI)AfAm >90 (>60 ml/min/1.73 sqM) Est GFR (CKD-EPI)NonAf >90 (>60 ml/min/1.73 sqM) Glucose 95 (74-99) mg/dL Calcium 9.7 (8.4-10.2) mg/dL Magnesium 2.1 (1.6-2.3) mg/dL Total Bilirubin 0.3 (0.2-1.3) mg/dL AST 27 (17-59) U/L ALT 29 (4-49) U/L Alkaline Phosphatase 71 (38-126) U/L Troponin I (0.000-0.034) ng/mL Total Protein 7.6 (6.3-8.2) g/dL Albumin 4.7 (3.5-5.0) g/dL 06/09/22 Range/Units 13:17 WBC (3.8-10.6) k/uL RBC (4.30-5.90) m/uL Hgb (13.0-17.5) gm/dL Hct (39.0-53.0) % MCV (80.0-100.0) fL MCH (25.0-35.0) pg MCHC (31.0-37.0) g/dL RDW (11.5-15.5) % Plt Count (150-450) k/uL MPV Neutrophils % % Lymphocytes % % Monocytes % % Eosinophils % % Basophils % % Neutrophils # (1.3-7.7) k/uL Lymphocytes # (1.0-4.8) k/uL Monocytes # (0-1.0) k/uL Eosinophils # (0-0.7) k/uL Basophils # (0-0.2) k/uL PT (9.0-12.0) sec INR (<1.2) APTT (22.0-30.0) sec Sodium (137-145) mmol/L Potassium (3.5-5.1) mmol/L Chloride (98-107) mmol/L Carbon Dioxide (22-30) mmol/L Anion Gap mmol/L BUN (9-20) mg/dL Creatinine (0.66-1.25) mg/dL Est GFR (CKD-EPI)AfAm (>60 ml/min/1.73 sqM) Est GFR (CKD-EPI)NonAf (>60 ml/min/1.73 sqM) Glucose (74-99) mg/dL Calcium (8.4-10.2) mg/dL Magnesium (1.6-2.3) mg/dL Total Bilirubin (0.2-1.3) mg/dL AST (17-59) U/L ALT (4-49) U/L Alkaline Phosphatase (38-126) U/L Troponin I <0.012 (0.000-0.034) ng/mL Total Protein (6.3-8.2) g/dL Albumin (3.5-5.0) g/dL Disposition Clinical Impression: Chest wall pain Disposition: HOME SELF-CARE Condition: Good Instructions (If sedation given, give patient instructions): Chest Pain (ED), Chest Wall Pain (ED) Is patient prescribed a controlled substance at d/c from ED?: No Referrals: Trevon Jones MD [Primary Care Provider] - 1-2 days Time of Disposition: 14:21
[2021-09-03 13:42] LABS: Basophils # (A) 0.1 k/uL (0-0.2); Basophils % (A) 1 %; Eosinophils # (A) 0.3 k/uL (0-0.7); Eosinophils % (A) 3 %; HCT 42.6 % (39.0-53.0); HGB 14.3 gm/dL (13.0-17.5); Lymphocytes # (A) 2.2 k/uL (1.0-4.8); Lymphocytes % (A) 24 %; MCH 29.2 pg (25.0-35.0); MCHC 33.5 g/dL (31.0-37.0); MCV 87.1 fL (80.0-100.0); Mean Platelet Volume 7.2; Monocytes # (A) 0.6 k/uL (0-1.0); Monocytes % (A) 7 %; Neutrophils # (A) 5.8 k/uL (1.3-7.7); Neutrophils % (A) 63 %; Platelet Count 290 k/uL (150-450); RBC 4.89 m/uL (4.30-5.90); RDW 14.5 % (11.5-15.5); WBC 9.2 k/uL (3.8-10.6)
--- NOTE | 2021-09-03 13:48 | XR ---
EXAMINATION TYPE: XR chest 2V DATE OF EXAM: 09/03/2021 COMPARISON: 11/12/2018 TECHNIQUE: PA and lateral views submitted. HISTORY: Chest pain FINDINGS: The lungs are clear and there is no pneumothorax, pleural effusion, or focal pneumonia. Heart size normal. No failure. Arthropathy of the right AC joint. IMPRESSION: 1. No acute process.
[2021-09-03 13:50] LABS: ALT 29 U/L (4-49); AST 27 U/L (17-59); African American GFR (CKD) >90 (>60 ml/min/1.73 sqM); Albumin 4.7 g/dL (3.5-5.0); Alkaline Phosphatase 71 U/L (38-126); Anion Gap 9 mmol/L; Blood Urea Nitrogen 14 mg/dL (9-20); Calcium 9.7 mg/dL (8.4-10.2); Carbon Dioxide 30 mmol/L (22-30); Chloride 104 mmol/L (98-107); Glucose 95 mg/dL (74-99); Magnesium 2.1 mg/dL (1.6-2.3); Non-African American GFR(CKD) >90 (>60 ml/min/1.73 sqM); Potassium 3.2 mmol/L (3.5-5.1); Sodium 143 mmol/L (137-145); Total Bilirubin 0.3 mg/dL (0.2-1.3); Total Protein 7.6 g/dL (6.3-8.2)
[2021-09-03 14:02] LABS: INR 0.9 (<1.2); Prothrombin Time 10.3 sec (9.0-12.0)
[2021-09-03 15:06] VITALS: BP 148/89; PULSE 87; TEMP 98.3
== END 2021-09-03 15:06 | disposition home or self-care (01) ==
LOC: EC 13:05
DX: R07.89 Other chest pain (principal); I10 Essential (primary) hypertension; Z91.030 Bee allergy status; Z91.048 Other nonmedicinal substance allergy status; Z91.040 Latex allergy status; Z88.8 Allergy status to other drugs, medicaments and biological substances
CPT/HCPCS: 36415; 71046; 80053; 83735; 84484; 85025; 85610; 85730; 93005; 99285

== ENCOUNTER 2022-10-29 17:16 | Emergency (ER) | payer OTHER ==
[2022-10-29 17:25] VITALS: RESP 16
[2022-10-29] MEDS ORDERED: LIDOCAINE 1% INJ 10MG/ML (20 ML MDV) SQ ONE (17:43)
--- NOTE | 2022-10-29 18:12 | XR ---
EXAMINATION TYPE: XR finger LT DATE OF EXAM: 10/29/2022 COMPARISON: None HISTORY: Laceration distal third and fourth digits TECHNIQUE: 3 view third fourth left hand digits FINDINGS: No acute fracture or dislocation is evident. Joint spaces are preserved. Minimal injuries o denita the distal pad of the fingers. No radiopaque foreign bodies evident. Follow up exams can be performed 7-10 days from acute trauma for continued pain. IMPRESSION: 1. Soft tissue injury distal pad third and fourth digits. 2. No acute osseous abnormality.
--- NOTE | 2022-10-29 18:28 | ED ---
General Adult HPI - General Chief complaint: Wound/Laceration Stated complaint: hand injury Time Seen by Provider: 10/29/22 17:39 Source: patient Mode of arrival: ambulatory Limitations: no limitations - History of Present Illness Initial comments: Patient is a 37-year-old male presenting to the emergency room with lacerations to the third and fourth digits the distal tips of his left hand which she inserted after cutting his hand accidentally on a lamp prior to his arrival. He does have a guardian due to until health and developed mental delay; consent was obtained from guardian for treatment. No range of motion impairment, concern for foreign body and tetanus vaccination is up-to-date. - Related Data Home Medications Medication Instructions Recorded Confirmed Metoprolol Tartrate [Lopressor] 25 mg PO DAILY 01/02/18 09/03/21 Losartan Potassium [Cozaar] 100 mg PO DAILY 09/12/18 09/03/21 hydroCHLOROthiazide 50 mg PO DAILY 09/12/18 09/03/21 Cholecalciferol [Vitamin D3 (125 125 mcg PO DAILY 09/03/21 09/03/21 Mcg = 5000 Iu)] EPINEPHrine (Auto Inject) [Epipen] 0.3 mg IM ONCE PRN 09/03/21 09/03/21 Allergies Allergy/AdvReac Type Severity Reaction Status Date / Time peanut Allergy Anaphylaxis Verified 10/29/22 17:25 tree nut Allergy Anaphylaxis Verified 10/29/22 17:25 venom-honey bee Allergy Anaphylaxis Verified 10/29/22 17:25 [bee venom (honey bee)] amlodipine [From Norvasc] AdvReac Swelling - Verified 10/29/22 17:25 feet Review of Systems ROS Statement: Those systems with pertinent positive or pertinent negative responses have been documented in the HPI. ROS Other: All systems not noted in ROS Statement are negative. Past Medical History Past Medical History: Hypertension History of Any Multi-Drug Resistant Organisms: None Reported Past Surgical History: Orthopedic Surgery Additional Past Surgical History / Comment(s): hand surgery Past Psychological History: Anxiety, Depression, PTSD Smoking Status: Never smoker Past Alcohol Use History: None Reported Past Drug Use History: None Reported General Exam Limitations: no limitations General appearance: alert, in no apparent distress Head exam: Present: atraumatic, normocephalic, normal inspection Eye exam: Present: normal appearance, PERRL, EOMI. Absent: scleral icterus, conjunctival injection, periorbital swelling ENT exam: Present: normal exam, mucous membranes moist Neck exam: Present: normal inspection Respiratory exam: Absent: respiratory distress, accessory muscle use Cardiovascular Exam: Present: regular rate GI/Abdominal exam: Present: soft. Absent: distended, tenderness, guarding, rebound, rigid Left Hand Wrist exam: Present: full ROM, tenderness (Third and fourth distal tip of fingers), laceration (Third and fourth distal tip of fingers). Absent: ecchymosis, deformity, crepitus, dislocation, erythema, amputation, nail avulsion, subungual hematoma Vascular: Absent: vascular compromise Back exam: Present: normal inspection Neurological exam: Present: alert, oriented X3, CN II-XII intact Psychiatric exam: Present: normal affect, normal mood Skin exam: Present: other (Lacerations as above) Course Vital Signs 10/29/22 17:22 Temperature 98.6 F Pulse Rate 100 Respiratory 16 Rate Blood Pressure 147/92 O2 Sat by Pulse 98 Oximetry Procedures - Laceration Laceration #1 Site: hand (left middle (3rd digit) finger distal tip) Size (cm): 2 Description: linear Depth: simple, single layer Anesthetic Used: lidocaine 1% Anesthesia Technique: local infiltration, nerve block Pre-repair: wound explored, irrigated extensively, deep structures intact Size of Sutures: 4-0 Number of Sutures: 4 Technique: simple, interrupted Patient Tolerated Procedure: well, no complications Laceration #2 Site: hand (Distal tip of ring finger (4th digit)) Size (cm): 2 Description: linear Depth: simple, single layer Anesthetic Used: lidocaine 1% Anesthesia Technique: local infiltration, nerve block Pre-repair: wound explored, irrigated extensively, deep structures intact Type of Sutures: nylon Size of Sutures: 4-0 Number of Sutures: 3 Technique: simple, interrupted Patient Tolerated Procedure: well, no complications Medical Decision Making - Medical Decision Making Was pt. sent in by a medical professional or institution (Dr. PA, WHEEL INSPECTOR, urgent care, hospital, or group home...) When possible be specific @ -No Did you speak to anyone other than the patient for history (EMS, parent, family, police, friend...)? What history was obtained from this source @ -No Did you review nursing and triage notes (agree or disagree)? Why? @ -I reviewed and agree with nursing and triage notes Were old charts reviewed (outside hosp., previous admission, EMS record, old EKG, old radiological studies, urgent care reports/EKG's, group home records)? Report findings @ -No old charts were reviewed Differential Diagnosis (chest pain, altered mental status, abdominal pain women, abdominal pain men, vaginal bleeding, weakness, fever, dyspnea, syncope, headache, dizziness, GI bleed, back pain, seizure, CVA, palpatations, mental health, musculoskeletal)? @ -not applicable EKG interpreted by me (3pts min.). @ -None done X-rays interpreted by me (1pt min.). @ -X-ray left fingers: No evidence of foreign body fracture or dislocation. Soft tissue injury at distal tips of third and fourth digit noted. CT interpreted by me (1pt min.). @ -None done U/S interpreted by me (1pt. min.). @ -None done What testing was considered but not performed or refused? (CT, X-rays, U/S, labs)? Why? @ -None What meds were considered but not given or refused? Why? @ -None Did you discuss the management of the patient with other professionals (professionals i.e. , PA, WHEEL INSPECTOR, lab, RT, psych nurse, director social, creative manager, teacher, cra officer, case sealer)? Give summary @ -No Was smoking cessation discussed for >3mins.? @ -No Was critical care preformed (if so, how long)? @ -No Were there social determinants of health that impacted care today? How? (Homelessness, low income, unemployed, alcoholism, drug addiction, transportation, low edu. Level, literacy, decrease access to med. care, prison, re hab)? @ -No Was there de-escalation of care discussed even if they declined (Discuss DNR or withdrawal of care, Hospice)? DNR status @ -No What co-morbidities impacted this encounter? (DM, HTN, Smoking, COPD, CAD, Cancer, CVA, ARF, Chemo, Hep., AIDS, mental health diagnosis, sleep apnea, morbid obesity)? @ -None Was patient admitted / discharged? Hospital course, mention meds given and route, prescriptions, significant lab abnormalities, going to OR and other pertinent info. @ -[age]-year-old male presenting to the emergency room with lacerations to the distal tips of his middle and ring finger of his left hand after accidentally cutting it on a lamp prior to his arrival. He thinks his tetanus vaccination is up-to-date. Will obtain x-ray to ensure no foreign body and then plan for digital block with laceration closure. X-ray demonstrates no foreign body fracture or dislocation. Digital block completed to both digits with still some distal sensation consequently local lidocaine also infiltrated. Due to essential tremor nurse had to hold patient's hand study for suturing however sutured without complications after assistance. Wound cleansed and dressing applied. Wound care discussed. Questions and concerns answered. Return parameters emergency room discussed. Will discharge home in stable condition with sutures intact to lacerations of the third and fourth digits advising return to the emergency room in 7-10 days for suture removal. Undiagnosed new problem with uncertain prognosis? @ -No Drug Therapy requiring intensive monitoring for toxicity (Heparin, Nitro, Insulin, Cardizem)? @ -No Were any procedures done? @ -Yes, see procedures for details Diagnosis/symptom? @ -Laceration third and fourth digit distal Acute, or Chronic, or Acute on Chronic? @ -Acute Uncomplicated (without systemic symptoms) or Complicated (systemic symptoms)? @ -Uncomplicated Side effects of treatment? @ -No Exacerbation, Progression, or Severe Exacerbation? @ -No Poses a threat to life or bodily function? How? (Chest pain, [place], [place], pneumonia, PE, COPD, DKA, ARF, appy, cholecystitis, CVA, Diverticulitis, Homicidal, Suicidal, threat to staff... and all critical care pts) @ -No Case discussed with Dr. Montague. - Radiology Data Radiology results: report reviewed, image reviewed Disposition Clinical Impression: Laceration Disposition: HOME SELF-CARE Condition: Stable Additional Instructions: Please keep wound clean and dry. Monitor for signs and symptoms of infection and seek medical attention as appropriate if symptoms occur. Please return to the emergency department for suture removal in 7-10 days. Please return to the Emergency Department if symptoms worsen or any other concerns. Is patient prescribed a controlled substance at d/c from ED?: No Referrals: None,Stated [Primary Care Provider] - 1-2 days Time of Disposition: 18:30
[2022-10-29 18:38] VITALS: BP 139/77; PULSE 94; TEMP 98.7
== END 2022-10-29 18:38 | disposition home or self-care (01) ==
LOC: EC 17:16
DX: S61.219A Laceration without foreign body of unspecified finger without damage to nail, initial encounter (principal); I10 Essential (primary) hypertension; F41.9 Anxiety disorder, unspecified; F32.A Depression, unspecified; Z79.899 Other long term (current) drug therapy; Z91.018 Allergy to other foods; Z91.030 Bee allergy status; Z88.8 Allergy status to other drugs, medicaments and biological substances; W26.8XXA Contact with other sharp object(s), not elsewhere classified, initial encounter
CPT/HCPCS: 73140; 99283; 12002; J2001